=== PATIENT | female | born 1990 | race Caucasian/White ===

== ENCOUNTER 2019-10-10 22:52 | Emergency (ER) | payer SELFPAY ==
--- OUTSIDE RECORDS SUMMARY | 2019-10-10 22:55 | XMS REPORT ---
[facility] Address Unknown Phone Unavailable Care Team Providers Care Commercial Producer Name Role Phone Unavailable Unavailable Payers Payer Name Policy Type Policy Number Effective Date Expiration Date Problems This patient has no known problems. Allergies, Adverse Reactions, Alerts Allergy Name Allergy Type Status Severity Reaction(s) Onset Date Inactive Date Treating Clinician Comments No Known Allergies DA Active U 2016-06-02 00:00:00 Medications This patient has no known medications.
--- NOTE | 2019-10-10 23:24 | NUR ---
Called Pt for Triage, no response at this time, will attempt again.
--- NOTE | 2019-10-10 23:37 | NUR ---
Checked lobby, restroom and patio/parking lot for Pt, no response at this time.
== END 2019-10-10 23:37 | disposition left against medical advice (07) ==
LOC: ER 22:52
DX: S09.90XA Unspecified injury of head, initial encounter (principal)